=== PATIENT | female | born 1980 | race Caucasian/White ===

== ENCOUNTER 2018-02-18 13:20 | Emergency (ER) | payer MEDICAID ==
[~2018-02-18] VITALS: Ht 177.8 cm; Wt 131.8 kg
[2018-02-18 13:36] VITALS: Ht 177.8 cm; Wt 131.8 kg
[2018-02-18] MEDS ORDERED: GLUCOPHAGE500 MG PO (13:38)
[2018-02-18] MEDS ORDERED: CLONAZEPAM1 MG/TAB PO (13:39)
[2018-02-18] MEDS ORDERED: LOPRESSOR25 MG PO (13:39)
[2018-02-18] MEDS ORDERED: TIROSINT13 MCG PO (13:40)
[2018-02-18] MEDS ORDERED: EFFEXOR XR150 MG PO (13:40)
[2018-02-18] MEDS ORDERED: PROAIR HFA8.5 GM INH (13:42)
[2018-02-18] MEDS ORDERED: PROVENTIL/2.5 MG/3 M INH (13:42)
[2018-02-18] MEDS ORDERED: HYDROCODONE-APA1 TAB PO (13:43)
[2018-02-18 14:26] LABS: APTT 25.6 SECONDS (22.8-39.4); INR 1.05 (0.85-1.17); PROTIME 13.3 SECONDS (11.6-15.0)
[2018-02-18 14:28] LABS: D-DIMER-QUANTITATIVE 0.57 ug/mLFEU (0.20-0.54)
[2018-02-18 14:31] LABS: BASOPHILS 1.1 % (0-2); EOSINOPHILS 1.7 % (0-7); HEMATOCRIT 33.1 % (36.0-48.0); HEMOGLOBIN 10.1 g/dL (12-16); IMMATURE GRANULOCYTES 0.2 % (0-5); LYMPHOCYTES 28.8 % (15-50); MCH 21.6 pg (26.0-34.0); MCHC 30.5 g/dL (31.0-37.0); MCV 70.7 fL (80.0-100.0); MEAN PLATELET VOLUME 10.3 fL (7.4-10.4); MONOCYTES 7.1 % (2-11); NEUTROPHILS 61.1 % (40-80); RBC 4.68 10x6/uL (4.00-5.40); RDW 17.3 % (11.5-14.5); WBC 8.3 10x3/uL (4.8-10.8)
[2018-02-18 14:32] LABS: ALBUMIN 3.3 g/dL (3.4-5.0); ALKALINE PHOSPHATASE 56 U/L (46-116); ALT (SGPT) 19 U/L (10-68); BILIRUBIN - TOTAL 0.58 mg/dL (0.2-1.3); CALC OSMOLALITY 271 mosm/kg (275-300); CALCIUM 8.9 mg/dL (8.5-10.1); CARBON DIOXIDE 22.7 mmol/L (21.0-32.0); CHLORIDE - SERUM 103 mmol/L (98-107); CREATININE - SERUM 0.6 mg/dL (0.6-1.3); GLUCOSE 91 mg/dL (74-106); POTASSIUM - SERUM 3.9 mmol/L (3.5-5.1); PROTEIN - SERUM 7.8 g/dL (6.4-8.2); SODIUM 137 mmol/L (136-145); UREA NITROGEN 8 mg/dL (7-18); eGFR NON AFRICAN AMERICAN > 90 mL/min (90-120)
[2018-02-18 14:33] LABS: PLATELET COUNT 300 10x3/uL (130-400)
[2018-02-18 14:41] LABS: CKMB 2.3 U/L (0.0-3.6); LIPASE 128 U/L (73-393); MAGNESIUM - SERUM 1.9 mg/dL (1.8-2.4); TROPONIN-I < 0.017 ng/mL (0.000-0.060)
[2018-02-18] MEDS ORDERED: IBUPROFEN800 MG PO (18:49)
[2018-02-18] MEDS ORDERED: CYCLOBENZAPRINE10 MG PO (18:49)
[2018-02-18] MEDS ORDERED: ACETAMINOPHEN500 M1 PO (18:49)
[2018-02-18 19:36] VITALS: BP 139/87
== END 2018-02-18 19:37 | disposition home or self-care (01) ==
LOC: D.ER 13:20
PROVIDERS: Family Medicine
DX: R07.9 Chest pain, unspecified (principal); M79.1 Myalgia

== ENCOUNTER → 2018-05-31 07:19 | Outpatient (CLI) | payer MEDICAID ==
[2018-02-18 13:36] VITALS: BMI 41.6
--- NOTE | ~2018-05-31 | ST ---
PATIENT:CRARILLO AUGUSTE MEDICAL RECORD: [id number] SEX: F LOCATION:[facility] ORDER #: ADMISSION DATE: 05/31/18 AGE OF PATIENT: 37 REFERRING PHYSICIAN: INTERPRETING PHYSICIAN: ANGÉLICA GUSTAFSON MD DATE OF SERVICE: 05/31/2018 INDICATIONS: Chest pain of unknown etiology. She was exercised on standard Lexiscan protocol with 27.9 mCi of sestamibi injected at peak stress. Rest images were done previously with 8.6 mCi. OVERALL IMPRESSION: Findings Gated SPECT reveals preserved ejection fraction at 60% with good wall motioning and thickening and brightening throughout all segments. SPECT imaging Cardiolite was used as myocardial perfusion agent. There is homogeneous uptake throughout all segments at rest and stress with no evidence of inducible ischemia or previous infarction. OVERALL IMPRESSION: 1. This is a normal nuclear stress test with no evidence of inducible ischemia or previous infarction. 2. Gated SPECT reveals preserved ejection fraction at 60%. In this patient with ongoing symptomatology, the current scan does not suggest that there is a presence of hemodynamically significant coronary disease. Evaluate noncardiac etiology symptomatology. TRANSINT:[id number] Voice Confirmation ID: [id number] DOCUMENT ID: [id number] ANGÉLICA GUSTAFSON MD at 0924 CC: [id number] DICTATION DATE: 05/31/18 121 CLOUD DEVELOPER: 06/01/18 0342 DEP CLI 05/31/18 [id number] [place] [address]
[~2018-05-31 07:19] MED LIST: ACETAMINOPHEN500 M1 PO; CLONAZEPAM1 MG/TAB PO; CYCLOBENZAPRINE10 MG PO; EFFEXOR XR150 MG PO; GLUCOPHAGE500 MG PO; HYDROCODONE-APA1 TAB PO; IBUPROFEN800 MG PO; LOMOTIL 2.5-0.1 EAC1 PO; LOPRESSOR25 MG PO; PROAIR HFA8.5 GM INH; PROVENTIL/2.5 MG/3 M INH; REXULTI1 MG PO; SINGULAIR10 MG PO; TIROSINT13 MCG PO; ZOFRAN ODT4 MG/UDTAB PO
== END | disposition home or self-care (01) ==
LOC: D.NM 05-17 08:00
DX: R06.02 Shortness of breath (principal)

== ENCOUNTER 2018-06-25 03:22 | Emergency (ER) | payer MEDICAID ==
[~2018-06-25] VITALS: Ht 177.8 cm; Wt 136.4 kg
[~2018-06-25 03:22] MED LIST changes: -LOMOTIL 2.5-0.1 EAC1 PO; -REXULTI1 MG PO; -SINGULAIR10 MG PO; -ZOFRAN ODT4 MG/UDTAB PO
[2018-06-25 03:25] VITALS: Ht 177.8 cm; Wt 136.4 kg
[2018-06-25] MEDS ORDERED: REXULTI1 MG PO (03:30)
[2018-06-25] MEDS ORDERED: SINGULAIR10 MG PO (03:30)
[2018-06-25 04:32] LABS: BASOPHILS 0.4 % (0-2); EOSINOPHILS 2.9 % (0-7); HEMATOCRIT 32.2 % (36.0-48.0); HEMOGLOBIN 9.7 g/dL (12-16); IMMATURE GRANULOCYTES 0.8 % (0-5); LYMPHOCYTES 31.6 % (15-50); MCH 20.8 pg (26.0-34.0); MCHC 30.1 g/dL (31.0-37.0); MCV 69.1 fL (80.0-100.0); MEAN PLATELET VOLUME 9.4 fL (7.4-10.4); MONOCYTES 8.4 % (2-11); NEUTROPHILS 55.9 % (40-80); RBC 4.66 10x6/uL (4.00-5.40); RDW 18.2 % (11.5-14.5)
[2018-06-25 04:34] LABS: PLATELET COUNT 225 10x3/uL (130-400)
[2018-06-25 04:43] LABS: ALBUMIN 3.4 g/dL (3.4-5.0); ALKALINE PHOSPHATASE 76 U/L (46-116); ALT (SGPT) 82 U/L (10-68); AMYLASE - SERUM 53 U/L (25-115); BILIRUBIN - TOTAL 0.43 mg/dL (0.2-1.3); CALC OSMOLALITY 274 mosm/kg (275-300); CALCIUM 8.6 mg/dL (8.5-10.1); CARBON DIOXIDE 21.7 mmol/L (21.0-32.0); CHLORIDE - SERUM 104 mmol/L (98-107); CREATININE - SERUM 0.7 mg/dL (0.6-1.3); GLUCOSE 132 mg/dL (74-106); LIPASE 130 U/L (73-393); POTASSIUM - SERUM 3.5 mmol/L (3.5-5.1); PROTEIN - SERUM 7.2 g/dL (6.4-8.2); SODIUM 137 mmol/L (136-145); UREA NITROGEN 9 mg/dL (7-18); eGFR NON AFRICAN AMERICAN > 90 mL/min (90-120)
[2018-06-25] MEDS ORDERED: LOMOTIL 2.5-0.1 EAC1 PO (05:51)
[2018-06-25] MEDS ORDERED: ZOFRAN ODT4 MG/UDTAB PO (05:51)
[2018-06-25 06:11] LABS: FERRITIN 38 ng/mL (3-244); LDH 251 U/L (81-234)
[2018-06-25 06:15] VITALS: BP 124/79
[2018-06-25 06:22] LABS: % SATURATION 5 % (15-55); IRON 24 ug/dl (35-150); TOTAL IRON BIND CAPACITY 421 ug/dl (260-445); UNSAT IRON BIND CAPACITY 397 ug/dl (150-375)
[2018-06-26 07:23] LABS: HEPATITIS C ANTIBODY <0.1 S/CO RAT (0.0-0.9)
[2018-06-28 13:14] LABS: FOLATE (FOLIC ACID) - SERUM 5.2 ng/mL (>3.0)
== END 2018-06-25 06:15 | disposition home or self-care (01) ==
LOC: D.ER 03:22
PROVIDERS: Family Medicine
DX: A08.4 Viral intestinal infection, unspecified (principal); R79.89 Other specified abnormal findings of blood chemistry; D50.9 Iron deficiency anemia, unspecified; G40.909 Epilepsy, unspecified, not intractable, without status epilepticus; E11.9 Type 2 diabetes mellitus without complications; I10 Essential (primary) hypertension

== ENCOUNTER 2018-10-13 09:24 | Day surgery (SDC) | payer MEDICAID ==
[2018-10-12 11:30] LABS: CALC OSMOLALITY 279 mosm/kg (275-300); CALCIUM 8.7 mg/dL (8.5-10.1); CARBON DIOXIDE 24.3 mmol/L (21.0-32.0); CHLORIDE - SERUM 105 mmol/L (98-107); CREATININE - SERUM 0.7 mg/dL (0.6-1.3); GLUCOSE 134 mg/dL (74-106); POTASSIUM - SERUM 4.2 mmol/L (3.5-5.1); SODIUM 140 mmol/L (136-145); UREA NITROGEN 11 mg/dL (7-18); eGFR NON AFRICAN AMERICAN > 90 mL/min (90-120)
[2018-10-12 11:39] LABS: HEMATOCRIT 33.4 % (36.0-48.0); HEMOGLOBIN 10.1 g/dL (12-16); MCH 22.2 pg (26.0-34.0); MCHC 30.2 g/dL (31.0-37.0); MCV 73.4 fL (80.0-100.0); MEAN PLATELET VOLUME 10.1 fL (7.4-10.4); RBC 4.55 10x6/uL (4.00-5.40); RDW 24.4 % (11.5-14.5); WBC 8.2 10x3/uL (4.8-10.8)
[~2018-10-13] VITALS: Ht 177.8 cm; Wt 136.1 kg
[~2018-10-13 09:24] MED LIST changes: +EFFEXOR100 MG; +HYDROCODON-ACE1 EA10; +LOMOTIL 2.5-0.1 EAC1 PO; +REXULTI1 MG PO; +SINGULAIR10 MG PO; +ZOFRAN ODT4 MG/UDTAB PO
[2018-10-13] MEDS ORDERED: ALBUTEROL2.5 MG/3 M INH (10:46)
[2018-10-13] MEDS ORDERED: FERROUS SULFAT325 MG (10:47)
[2018-10-13] MEDS ORDERED: ASA (10:48)
[2018-10-13] MEDS ORDERED: ASPIRIN325 MG PO (10:48)
[2018-10-13] MEDS ORDERED: BENADRYL50 MG (10:49)
[2018-10-13 11:51] VITALS: BP 122/72; Ht 177.8 cm; Wt 136.1 kg
--- NOTE | 2018-10-13 16:30 | NUR ---
REC'D FROM . FAMILY AT BEDSIDE. PATIENT WANTING TO EAT. DR TREVINO ORDERED A CXR THEREFORE REMAINS NPO PENDING CXR.
--- NOTE | 2018-10-13 17:00 | NUR ---
CXR COMPLETED. WAITING FOR RESULTS. C/O NAUSEA.
--- NOTE | 2018-10-13 17:12 | NUR ---
ZOFRAN 4MG IV ADMINSITERED FOR NAUSEA.
--- NOTE | 2018-10-13 17:40 | NUR ---
CALLED RADIOLOGY AGAIN DUE TO PATIENT NOT BEING ABLE TO EAT AND TO CALL DR TREVINO FOR DC ORDERS.
--- NOTE | 2018-10-13 17:45 | NUR ---
SPOKE WITH DR TREVINO. ORDERS RECEIVED TO DC PT HOME.
--- NOTE | 2018-10-13 18:41 | NUR ---
DR URIEL GUTIERREZ FOR DC ORCERS. FL TRAY GIVEN TO PT.
--- NOTE | 2018-10-13 19:00 | NUR ---
TOLERATED FL TRAY. IV DC'D WITH CATHETER INTACT. WRITTEN AND VERBAL DC INST. GIVEN TO PT. VERBALIZED UNDERSTANDING.
--- NOTE | 2018-10-13 19:20 | NUR ---
DC'D HOME WITH FAMILY VIA PRIVATE VEHICLE. TAKEN TO VEHICLE VIA WC. STABLE AT TIME OF DC.
[2018-10-15 14:17] LABS: FUNGUS STAIN Final report (())
--- NOTE | 2018-10-15 15:33 | OP ---
PATIENT NAME: CARRILLO AUGUSTE MEDICAL RECORD: [id number] :76 LOCATION:[facility] ADMISSION DATE: SURGEON: STEPHANIE TREVINO MD DATE OF OPERATION: 10/13/2018 PREOPERATIVE DIAGNOSIS: Left neck lymphadenopathy, rule out malignancy. POSTOPERATIVE DIAGNOSIS: Left neck lymphadenopathy, rule out malignancy. PROCEDURE: Left neck excisional lymph node biopsy. SURGEON: Stephanie Trevino MD SOFTWARE INSTALLER: None. BLOOD LOSS: Minimal. ANESTHESIA: General. COMPLICATIONS: None. The risks, possible complications and alternatives to procedure were explained to the patient. She elects to proceed. OPERATIVE COURSE: The patient was conveyed to the operating room electively on 10/13/2018. General anesthesia was induced by the anesthesia staff. The left neck and left upper chest was sterilely prepped and draped. Utilizing the handheld ultrasound, I tried to visualize the nearest and largest lymph node. I was unsuccessful doing this down to 6 cm. I could palpate the lymph node; however, and a transverse incision was accomplished. Blunt dissection was carried down to the lymph josr tissue. Utilizing the Harmonic scalpel, I was able to excise the lymph josr tissue. I sent the specimen off to pathology and this did indeed return that the biopsy specimen was a lymph node. A topical hemostatic agent was applied into the wound. The subdermis was approximated with interrupted 3-0 Vicryl. The skin was approximated with a running intracuticular 3-0 Vicryls. Benzoin and Steri-Strips were applied. The patient was then extubated and conveyed to the post-anesthesia care unit. She had an excellent bilateral hand application trainer in the anesthesia unit. She had excellent flexion and extension at the elbows as well. She had no paresthesias involving the left upper extremity. She has good cranial nerve XI function bilaterally. I will see her in the office in 1 week. TRANSINT:[id number] Voice Confirmation ID: [id number] DOCUMENT ID: [id number] OPERATIVE REPORT [id number] CARRILLO AUGUSTE STEPHANIE TREVINO MD at 1533 CC: NAHOMI WELLINGTON and ALEX ECHEVARRIA MD [id number] DICTATION DATE: 10/14/18 1424 ENGROSSER: 10/14/181957 [facility] 10/13/18 [id number] [place], [place] [id number]
[2018-10-15 17:10] LABS: ACID FAST SMEAR Negative (()); AFB SPECIMEN PROCESSING Concentration (())
[2018-10-21 13:18] LABS: FUNGUS MYCOLOGY CULTURE Preliminary report (())
== END 2018-10-13 19:20 | disposition home or self-care (01) ==
LOC: D.OPS 09:24
PROVIDERS: Anesthesiology; Surgery
DX: R59.0 Localized enlarged lymph nodes (principal); Z01.812 Encounter for preprocedural laboratory examination

== ENCOUNTER 2019-05-16 08:58 | Emergency (ER) | payer MEDICAID ==
[~2019-05-16] VITALS: Ht 177.8 cm; Wt 136.4 kg
[~2019-05-16 08:58] MED LIST changes: +ALBUTEROL2.5 MG/3 M INH; +ASA; +ASPIRIN325 MG PO; +BENADRYL50 MG; +FERROUS SULFAT325 MG
[2019-05-16 09:01] VITALS: Ht 177.8 cm; Wt 136.4 kg
[2019-05-16] MEDS ORDERED: SYMBICORT 16010.2 GM INH (09:04)
[2019-05-16 09:30] LABS: BASOPHILS 0.5 % (0-2); EOSINOPHILS 2.8 % (0-7); HEMATOCRIT 34.8 % (36.0-48.0); HEMOGLOBIN 11.5 g/dL (12-16); IMMATURE GRANULOCYTES 0.5 % (0-5); LYMPHOCYTES 39.9 % (15-50); MCV 78.6 fL (80.0-100.0); MEAN PLATELET VOLUME 10.3 fL (7.4-10.4); MONOCYTES 5.4 % (2-11); NEUTROPHILS 50.9 % (40-80); PLATELET COUNT 238 10x3/uL (130-400); RBC 4.43 10x6/uL (4.00-5.40); RDW 14.6 % (11.5-14.5); WBC 9.5 10x3/uL (4.8-10.8)
[2019-05-16 09:43] LABS: ALBUMIN 3.7 g/dL (3.4-5.0); ALKALINE PHOSPHATASE 70 U/L (46-116); ALT (SGPT) 41 U/L (10-68); BILIRUBIN - TOTAL 0.45 mg/dL (0.2-1.3); CALC OSMOLALITY 274 mosm/kg (275-300); CALCIUM 8.4 mg/dL (8.5-10.1); CARBON DIOXIDE 25.9 mmol/L (21.0-32.0); CHLORIDE - SERUM 102 mmol/L (98-107); CREATININE - SERUM 0.7 mg/dL (0.6-1.3); GLUCOSE 163 mg/dL (74-106); POTASSIUM - SERUM 3.9 mmol/L (3.5-5.1); PROTEIN - SERUM 7.7 g/dL (6.4-8.2); SODIUM 136 mmol/L (136-145); UREA NITROGEN 10 mg/dL (7-18); eGFR NON AFRICAN AMERICAN > 90 mL/min (90-120)
[2019-05-16 09:47] LABS: INR 1.04 (0.85-1.17); PROTIME 13.1 SECONDS (11.6-15.0)
[2019-05-16 09:48] LABS: APTT 26.1 SECONDS (22.8-39.4)
[2019-05-16 09:49] LABS: D-DIMER-QUANTITATIVE 0.46 ug/mLFEU (0.20-0.54)
[2019-05-16 09:55] LABS: CKMB 1.8 U/L (0.0-3.6); CREATINE KINASE 161 UL (21-215)
[2019-05-16 09:58] LABS: TROPONIN-I < 0.017 ng/mL (0.000-0.060)
[2019-05-16 10:18] LABS: PRO BNP 4 pg/mL (0-125)
[2019-05-16] MEDS ORDERED: PREDNISONE20 MG PO (10:38)
[2019-05-16 11:41] VITALS: BP 141/100
== END 2019-05-16 11:42 | disposition home or self-care (01) ==
LOC: D.ER 08:58
PROVIDERS: Family Medicine
DX: J44.1 Chronic obstructive pulmonary disease with (acute) exacerbation (principal); I10 Essential (primary) hypertension; E11.9 Type 2 diabetes mellitus without complications